=== PATIENT | female | born 1965 | race African-American/Black ===

== ENCOUNTER 2024-02-15 10:54 | Outpatient (CLI) | payer BC | END 2024-02-15 10:55 | disposition home or self-care (01) | LOC: BICRAD 10:54 | PROVIDERS: ATTEND Internal Medicine | DX: M25.551 Pain in right hip (principal); M54.31 Sciatica, right side; M47.816 Spondylosis without myelopathy or radiculopathy, lumbar region; M46.1 Sacroiliitis, not elsewhere classified; M16.0 Bilateral primary osteoarthritis of hip; N28.89 Other specified disorders of kidney and ureter | CPT/HCPCS: 72100 ==

== ENCOUNTER 2025-05-04 15:25 | Outpatient (CLI) | payer OTHER ==
[2025-05-04 16:31] LABS: #Basophils 0.05 10x3/uL (0.0-0.2); #Eosinophils 0.18 10x3/uL (0.0-0.7); #Monocytes 0.71 10x3/uL (0.11-0.59); #Neutrophils 3.97 10x3/uL (1.40-6.50); %Basophils 0.7 % (0.0-1.0); %Eosinophils 2.5 % (0.0-10.0); %Lymphocytes 30.4 % (21.0-51.0); %Monocytes 10.0 % (0.0-10.0); %Neutrophils 56.3 % (42.0-75.0); Hematocrit 42.2 % (36.0-47.0); Hemoglobin 13.4 g/dL (12.0-16.0); Mean Corpuscular Hemoglobin 27.1 pg (27.0-31.0); Mean Corpuscular Volume 85.4 fL (78.0-98.0); Platelet Count 365 10x3/uL (130-400); Red Blood Cell (RBC) Count 4.94 mill/uL (4.20-5.40); White Blood Cell (WBC) Count 7.07 10x3/uL (4.8-10.8)
[2025-05-04 16:52] LABS: INR-International Normal Ratio 1.0; Prothrombin Time 12.8 sec (12.0-14.7)
[2025-05-04 17:15] LABS: ALT (SGPT) 17 U/L (Less than 34); AST (SGOT) 22 U/L (11-34); Albumin 3.5 g/dL (3.1-4.5); Alkaline Phosphatase 85 U/L (40-110); Anion Gap 8 mmol/L (10-20); BUN (Urea Nitrogen) 8 mg/dL (9.8-20.1); Bilirubin, Total 0.2 mg/dL (0.3-1.2); Calc. Creatinine Clearance 0 mL/min (70-130); Calcium 10.0 mg/dL (7.8-10.44); Carbon Dioxide 29 mmol/L (23-31); Chloride 100 mmol/L (98-107); Globulin 4.1 g/dL (2.4-3.5); Glucose 88 mg/dL (80-115); Potassium 3.3 mmol/L (3.5-5.1); Sodium 134 mmol/L (136-145)
== END 2025-05-04 15:26 | disposition home or self-care (01) ==
LOC: LABBT 15:25
PROVIDERS: ATTEND Orthopaedic Surgery
DX: Z01.812 Encounter for preprocedural laboratory examination (principal); M16.11 Unilateral primary osteoarthritis, right hip
CPT/HCPCS: 80053; 85025; 85610; 87081

== ENCOUNTER 2025-05-09 10:42 | Inpatient (IN) | payer OTHER ==
[2025-05-04 15:48] VITALS: BMI 23.5
[2025-05-09] MEDS ORDERED: Tranexamic Acid 1,000 MG/10 ML VIAL ONE (12:08)
[2025-05-09] MEDS ORDERED: Vancomycin 1 GM/200 ML (FROZEN) BAG ONE (12:08)
[2025-05-09] MEDS ORDERED: CEFAZOLIN 2 GM VIAL ONE (12:18)
[2025-05-09] MEDS ORDERED: SUCCINYLCHOLINE/SOD CL,ISO/PF 200 MG/10 ML SYRINGE FS ONE (12:54)
[2025-05-09] MEDS ORDERED: Lidocaine 1% PF 5 ML VIAL ONE (12:54)
[2025-05-09] MEDS ORDERED: fentaNYL PF 100 MCG/2 ML SYRINGE ONE (12:54)
[2025-05-09] MEDS ORDERED: PROPOFOL 20 ML ONE (12:54)
[2025-05-09] MEDS ORDERED: PHENYLEPHRINE-NS 100 MCG/ML 10 ML SYRINGE ONE ×2 (13:00→13:18)
[2025-05-09] MEDS ORDERED: HYDROcodone/Acetaminophen 5/325 mg Tablet PO PRN (13:00)
[2025-05-09] MEDS ORDERED: PROPOFOL 200 MG/20 ML VIAL ONE (13:00)
[2025-05-09] MEDS ORDERED: Lidocaine 1.5% w/Epi 1:200K 30 ML VIAL (Epid Use) ONE (13:00)
[2025-05-09] MEDS ORDERED: diphenhydrAMINE 50 MG/ML VIAL IM PRN (13:00)
[2025-05-09] MEDS ORDERED: diphenhydrAMINE 25 MG CAP PO PRN ×2 (13:00→15:33)
[2025-05-09] MEDS ORDERED: diphenhydrAMINE 50 MG/ML VIAL IVP PRN (13:00)
[2025-05-09] MEDS ORDERED: Rocuronium Bromide 10 MG/ML (10ML VIAL) ONE ×2 (13:00→13:11)
[2025-05-09] MEDS ORDERED: FENTANYL 500 MCG/10 ML VIAL 500 MCG, Bupivacaine 0.75% 10 ML in Sodium Chloride 0.9% 80 ML EPIDURAL SCH (13:00)
[2025-05-09] MEDS ORDERED: Ondansetron PF 4 MG/2 ML Vial IVP PRN (13:00)
[2025-05-09] MEDS ORDERED: Bupivacaine 0.25% HCL 30 ML VIAL ONE (13:37)
[2025-05-09] MEDS ORDERED: SUGAMMADEX SODIUM 200 MG/2 ML VIAL ONE (14:07)
[2025-05-09] MEDS ORDERED: Ondansetron PF 4 MG/2 ML Vial ONE (14:07)
[2025-05-09] MEDS ORDERED: HYDROmorphone 0.5 MG/0.5 ML SYRINGE ONE ×2 (15:17→16:15)
[2025-05-09] MEDS ORDERED: Acetaminophen 325 MG TAB PO PRN (15:33)
[2025-05-09] MEDS ORDERED: HYDROcodone/Acetaminophen 10/325 mg Tablet PO PRN (15:33)
[2025-05-09] MEDS ORDERED: Ketorolac Tromethamine 30 MG (1 mL) VIAL ONE (17:36)
[2025-05-09] MEDS: Ketorolac Tromethamine 30 MG (1 mL) VIAL IVP SCH (17:37)
[2025-05-09] MEDS ORDERED: Ketorolac Tromethamine 30 MG (1 mL) VIAL IVP SCH (18:00)
[2025-05-09] MEDS: HYDROcodone/Acetaminophen 5/325 mg Tablet PO PRN (19:06)
[2025-05-09] MEDS: Ferrous Gluconate 324 MG TAB PO SCH (20:11)
[2025-05-09] MEDS: Aspirin 81 mg Enteric Coated Tablet PO SCH (20:11)
[2025-05-09] MEDS: Senokot S 8.6-50 MG TAB PO SCH (20:11)
[2025-05-10 05:37] LABS: Hematocrit 36.0 % (36.0-47.0); Hemoglobin 11.3 g/dL (12.0-16.0); Mean Corpuscular Hemoglobin 26.8 pg (27.0-31.0); Mean Corpuscular Volume 85.5 fL (78.0-98.0); Platelet Count 274 10x3/uL (130-400); Red Blood Cell (RBC) Count 4.21 mill/uL (4.20-5.40); White Blood Cell (WBC) Count 5.56 10x3/uL (4.8-10.8)
[2025-05-10] MEDS: Ondansetron PF 4 MG/2 ML Vial IVP PRN (06:40)
[2025-05-10] MEDS: Losartan 25 MG TAB PO SCH (09:27)
[2025-05-10] MEDS: Multivitamin W/ Minerals 1 TAB PO SCH (09:27)
[2025-05-10] MEDS: Rosuvastatin 5 MG TAB PO SCH (09:34)
[2025-05-11 04:59] LABS: Hematocrit 37.3 % (36.0-47.0); Hemoglobin 12.1 g/dL (12.0-16.0); Mean Corpuscular Hemoglobin 27.1 pg (27.0-31.0); Mean Corpuscular Volume 83.6 fL (78.0-98.0); Platelet Count 245 10x3/uL (130-400); Red Blood Cell (RBC) Count 4.46 mill/uL (4.20-5.40); White Blood Cell (WBC) Count 9.11 10x3/uL (4.8-10.8)
[2025-05-11] MEDS: Scopolamine 1 mg/72 hour Patch TD SCH (08:36)
[2025-05-11] MEDS: Sulfameth/Trimethoprim DS 800-160mg TAB PO SCH (08:36)
[2025-05-11 12:07] VITALS: BP 155/70; TEMP 98.6
[2025-05-14] MEDS ORDERED: Transdermal Patch Removal TOP SCH (08:00)
== END 2025-05-11 14:48 | disposition home or self-care (01) | DRG 470 ==
LOC: SDC 10:42 → SURG A 15:33 → SDC 19:15 → SURG A 19:26 → OBSVTOIN 05-10 08:55
PROVIDERS: ADMIT Orthopaedic Surgery; ATTEND Orthopaedic Surgery
PROC: 0SR90J9 Replacement of Right Hip Joint with Synthetic Substitute, Cemented, Open Approach (ICD-10-PCS; principal; 2025-05-09)
DX: M16.11 Unilateral primary osteoarthritis, right hip (principal); I10 Essential (primary) hypertension; E78.5 Hyperlipidemia, unspecified; Z90.49 Acquired absence of other specified parts of digestive tract; Z79.899 Other long term (current) drug therapy
CPT/HCPCS: 36415; 72170; 85027; C1713; C1776; J0166; J0665; J1171; J1885; J2250; J2405; J2704; J3010; J3373; J3490